=== PATIENT | female | born 1970 | race Caucasian/White ===

== ENCOUNTER 2016-08-16 00:43 | Inpatient (IN) | payer SELFPAY ==
[~2016-08-16] VITALS: Ht 157.5 cm; Wt 7.8 kg
--- NOTE | ~2016-08-16 | CO ---
ADMIT: 08/16/2016 RM/LOC: 631 [facility] MR#: [id number] [address] [address] CHIQUIS CRENSHAW [address] [place] [address] Consultation Report SEX: F AGE: 46 : 1970 DATE OF CONSULTATION: 08/16/2016 ATTENDING PHYSICIAN: Vero Andino CONSULTING PHYSICIAN: Joshua Madrid MD ADDENDUM: Chiquis is seen in consultation for gallstone pancreatitis. I have interviewed her, examined her personally, reviewed the laboratory and radiographic studies, reviewed Ralf Marin's note, and I am in agreement with his documentation, assessment, and plan. I have discussed laparoscopic cholecystectomy and its associated risks including bleeding, infection, damage to intraabdominal organs, including the biliary tree and conversion to an open procedure with Chiquis. She understands these and does wish to proceed. Would prefer her biochemical evidence of pancreatitis and her epigastric tenderness on exam to be improved, and the labs nearly normalized prior to considering surgical intervention. We will reassess with laboratory studies tomorrow and determine the timing of surgery based on that and her physical exam. Joshua Madrid MD/ krysta JOB #: [id number] CC: Vero Andino, Attending Physician Vero Andino, Family Physician
[~2016-08-16 00:43] MED LIST: COLACE-DPS100 MG PO; FEROSUL325 MG PO; LAN-O-SOOTHE7 GM TP; LATUDA40 MG PO; MOTRIN-DPS800 MG PO; MYLICON DPS80 MG PO; NIPPLECREAM PO; PERCOCET 5 DPS1 TAB PO; PRENATAL VIT1 TAB PO
--- NOTE | 2016-08-16 19:14 | ER ---
ADMIT: 08/16/2016 RM/LOC: 631 [facility] MR#: [id number] [id number] [place], [place] [address] [place] [address] [place] [address] Emergency Room Report SEX: F AGE: 46 : 1970 DATE: 08/16/2016 HISTORY OF PRESENT ILLNESS: The patient is a 46-year-old female with past medical history of depression, came to the ER with chief complaint of epigastric abdominal pain and nausea and vomiting since 2:00 p.m. for the last 12 hours. The patient states the pain is sharp and continues and started gradually and at the moment is moderate to severe in severity. The patient also had non-bilious, non-bloody vomiting. The patient states her last bowel movement was yesterday and was normal. PHYSICAL EXAMINATION: VITAL SIGNS: The patient has stable vitals, afebrile, is in moderate distress. HEAD and NECK: Noncontributory. CHEST: Clear to auscultation bilaterally. HEART: Normal heart sounds. ABDOMEN: Has mild to moderate tenderness in epigastric area, Overton sign is negative. There is no rebound. There is no guarding or rigidity. The rest of the physical exam is noncontributory. The patient received IV fluids, pain was controlled with morphine, the patient received Zofran for nausea and vomiting. LABORATORY DATA AND IMAGING: Lab work was indicative of WBC of 7.7 with hemoglobin of 12.9, and platelet of 286,000. Total bilirubin was 3.6, with elevated alkaline phosphatase of 381 and elevated AST and ALT to 683 and 642 respectively. Lipase was also elevated to 26,400. Urine was negative and UA was also negative too. Abdominal ultrasound was suggestive of cholelithiasis without cholecystitis, common bile duct is 5 mm. Family Medicine was consulted, and the patient was admitted for further followups and treatments of acute pancreatitis, gallstone pancreatitis. Sher Ding MD/ krysta JOB #: [id number] CC: Vero Andino MD, Attending Physician Vero Andino MD, Family Physician
[2016-08-18] MEDS ORDERED: LATUDA60 MG PO (19:47)
[2016-08-18] MEDS ORDERED: NORCO 5-325 TA1 EACH PO (19:47)
--- NOTE | 2016-08-21 07:24 | CO ---
ADMIT: 08/16/2016 RM/LOC: 631 [facility] MR#: [id number] [address] [address] CHIQUIS CRENSHAW [address] [place] [address] Consultation SEX: F AGE: 46 : 1970 DATE OF CONSULTATION: 08/16/2016 ATTENDING PHYSICIAN: Vero Andino CONSULTING PHYSICIAN: Joshua Madrid MD REASON FOR CONSULTATION: Abdominal pain, nausea, and vomiting. HISTORY OF PRESENT ILLNESS: Chiquis is a very pleasant, , but Singaporean- speaking 46-year-old female, who endorses a two day duration of abdominal pain and nausea and vomiting. Prior to onset of her symptoms, her abdominal pain was diffuse throughout her abdomen and she has had three times emesis. She has noticed emesis to be blood tinged, however, denies any bile or dark black emesis. Three days prior to these symptoms, she noticed diarrhea. She denies any dark or bloody stools. Because of her symptoms, she has been admitted to the hospital and had a full workup including abdominal ultrasound that did show cholelithiasis without cholecystitis. LFTs and pancreatic enzymes were elevated upon admission. She is being currently worked up for gallstone pancreatitis. PAST MEDICAL HISTORY: Bipolar disorder. PAST SURGICAL HISTORY: x4. ALLERGIES: NO KNOWN DRUG ALLERGIES. MEDICATIONS: Latuda. FAMILY HISTORY: Noncontributory. SOCIAL HISTORY: The patient is a social drinker, but denies tobacco use. REVIEW OF SYSTEMS: CONSTITUTIONAL: The patient denies any fever, chills, or night sweats. The rest of a comprehensive 10-point review of systems was performed and all other systems are negative. PHYSICAL EXAMINATION: GENERAL: The patient is in no acute distress. She is alert and oriented. HEENT: Head is normocephalic and atraumatic. EOMS are intact. Conjunctivae free of icterus, erythema, or pallor. Pinnae, free of deformities. Nose, midline. No tracheal deviation. NECK: Supple. SKIN: Negative for jaundice, clubbing, edema, pallor, or cyanosis. LUNGS: Normal respiratory effort. HEART: Distal pulses intact. Regular rate and rhythm. ABDOMEN: Soft, nondistended, and nontender. NEURO: Grossly intact. ADMIT: 08/16/2016 RM/LOC: 631 [facility] MR#: [id number] [address] [address] CHIQUIS CRENSHAW [address] [place] [address] Consultation SEX: F AGE: 46 : 1970 LABORATORY DATA: Lipase 8000. White blood cell count normal at 4.8. DIAGNOSTIC IMAGING: Please see HPI. ASSESSMENT: Gallstone pancreatitis. PLAN: The plan is to have the patient continued on ice chips, and we are going to recheck labs tomorrow morning. Hopefully, we will see a continued trend down of her enzymes and consider surgery hopefully later this week. I discussed this plan with the patient to which she is in agreement with this plan, had all her questions answered, and would like to proceed. Thanks for the consultation of this patient. BRENDA Gale / Joshua Madrid MD / krysta JOB #: [id number] CC: Vero Andino, Attending Physician Vero Andino, Family Physician
--- NOTE | 2016-08-23 08:18 | HP ---
ADMIT: 08/16/2016 RM/LOC: 631 [facility] MR#: [id number] [address] [address] [place] [address] [place] [address] History and Physical SEX: F AGE: 46 : 1970 DATE OF SERVICE: CHIEF COMPLAINT: Abdominal pain. HISTORY OF PRESENT ILLNESS: This is a 46-year-old female with past medical history of bipolar disorder, who was admitted with acute pancreatitis. The patient reports sudden onset of abdominal pain around 2:00 p.m. yesterday afternoon. She also had some associated nausea and vomited x3. She noticed some slight blood-tinged mucus in her vomit, but no bile. She denies any fevers. She reports that she drinks approximately 2 alcoholic beverages per month with her last drink being about 2 weeks ago. In the ED, her vital signs were stable, but her labs were significant for a lipase of 26,456, AST of 683, ALT of 642, alk phos of 381, and a bilirubin of 3.6. Her abdominal ultrasound showed some gallstones, but no signs of cholecystitis and her abdominal x-ray showed a normal bowel gas pattern. She was given 1 L of IV normal saline as well as Zofran and 6 mg of IV morphine for pain control. Her last dose of morphine was at 4:00 a.m. this morning, and she is currently pain-free. PAST MEDICAL HISTORY: Bipolar disorder. PAST SURGICAL HISTORY: x4. MEDICATIONS: 1. Sucralfate 1 g t.i.d. p.r.n. 2. Latuda, unknown dose at this time. ALLERGIES: NONE. SOCIAL HISTORY: She denies any tobacco or illegal drug use. She does drink approximately 2 alcoholic drinks per month with her last drink being 2 weeks ago. She lives at home. FAMILY HISTORY: Noncontributory. REVIEW OF SYSTEMS: A 10-point review of systems was reviewed and negative other than that stated above in the HPI. PHYSICAL EXAMINATION: VITAL SIGNS: Blood pressure 122/65, pulse 70, respirations 24, temp 98.7, saturating 93% on room air. GENERAL: She is resting comfortably, in no acute distress. HEENT: Shows moist mucous membranes. Nose is clear, atraumatic. HEART: Regular rate and rhythm. No murmurs. LUNGS: Clear to auscultation. ABDOMEN: Soft, mid-epigastric and left upper quadrant tenderness to palpation. Positive bowel sounds. EXTREMITIES: No edema. LABORATORY DATA AND IMAGING: Sodium 139, potassium 3.7, creatinine 1.2, glucose 151. White count 7.7, hemoglobin 12.9, platelets 286. Alk phos 381, ADMIT: 08/16/2016 RM/LOC: 1 [facility] MR#: [id number] [address] [place] [id number] GIULIANA CRENSHAW [address] [place] [address] History and Physical SEX: F AGE: 46 : 1970 AST 683, ALT 642, lipase 26,456, bilirubin 3.6. Ultrasound report shows gallstones with no signs of cholecystitis. ASSESSMENT: 1. Acute pancreatitis likely secondary to gallstones. 2. Acute kidney injury. 3. Elevated LFTs likely secondary to pancreatitis. 4. Bipolar disorder. PLAN: Plan will be to continue aggressive IV fluid hydration, Zofran, and morphine. We will go ahead and advance her diet as tolerated this afternoon. If her repeat labs this morning do not improve from her initial lab results, we may consider getting an MRCP, also get a correct Latuda dose from [facility] and continue on that medication here in the hospital. Abigail Zaldivar DO Resident / Vero Andino MD / krysta JOB #: [id number] CC: Vero Andino, Attending Physician Vero Andino, Family Physician
--- NOTE | 2016-08-31 13:52 | DS ---
ADMIT: 08/16/2016 RM/LOC: W.10 [facility] MR#: [id number] [address] [address] GIULIANA CRENSHAW [address] [place] [address] Discharge Summary SEX: F AGE: 46 : 1970 ADMISSION DATE: 08/16/2016 DISCHARGE DATE: 08/17/2016 FINAL DIAGNOSES: 1. Gallstone pancreatitis. 2. Cholecystitis. HOSPITAL COURSE: The patient was admitted on 08/16/2016 with abdominal pain and emesis. Labs were significant for elevated liver and pancreatic enzymes. An abdominal ultrasound showed gallstones but no signs of gallbladder wall thickening. The patient was giving given morphine and IV fluids and pain and emesis subsided. Surgery was consulted for further management and it was decided to do a CT of the abdomen and pelvis. The CT showed gallstones and so the plan was then to do a lap cholecystectomy. The patient was taken to the operating room for the lap ilene and tolerated the procedure well. She was then discharged to home later that day. Abigail Zaldivar DO Resident / Vero Andino MD / vdg JOB #: [id number] CC: Vero Andino MD, Attending Physician Vero Andino MD, Family Physician
--- NOTE | 2016-09-12 13:25 | OR ---
ADMIT: 08/16/2016 RM/LOC: W.10 [facility] MR#: [id number] [facility]#: [id number] [address] [address] [place] Janice [address] [place] [address] Operative/Delivery Room Report SEX: F AGE: 46 : 1970 SURGERY DATE: 08/17/2016 SURGEON: Naseem Smalls MD PREOPERATIVE DIAGNOSES: 1. Gallstone pancreatitis. 2. Cholecystitis. POSTOPERATIVE DIAGNOSES: 1. Gallstone pancreatitis. 2. Cholecystitis. FINAL PATHOLOGY: Pending. PROCEDURE: Laparoscopic cholecystectomy with intraoperative cholangiogram. PARKING RAMP ATTENDANT: BRENDA Gale, who was necessary for adequate exposure, retraction, and completion of this case. ANESTHESIA: General endotracheal tube. ESTIMATED BLOOD LOSS: 25 mL or less. INDICATION FOR PROCEDURE: Please see H and P. DESCRIPTION OF PROCEDURE: After the risks, benefits, possible complications, and the alternatives had been explained and informed consent had been obtained, the patient was taken back to the operating room, underwent general endotracheal tube anesthesia, and the surgical field was prepped and draped in a sterile manner. An infraumbilical incision was made. The Veress needle was inserted. The abdomen was insufflated with CO2. Once there was adequate insufflation, a 5 mm port was placed. The camera was placed through this port site. Under direct visualization, then placed a 10 mm epigastric, two 5 mm right upper quadrant ports. The gallbladder was raised superiorly and anteriorly, slowly dissected out the cystic duct coming directly off the gallbladder. A clip was placed on the gallbladder side. Introduced a cholangiogram catheter percutaneously through the right upper quadrant, opened the duct, placed the catheter into the cystic duct and clipped it. Obtained an intraoperative cholangiogram that showed good anatomy. No real dilation of the ducts, good filling into the duodenum, and no filling defects. Once that was done, I removed the catheter and then placed three clips on the remaining cystic duct and it was divided. Behind this, dissected out the artery. It was kind of branching, I was unsure of one posterior branch, this would possibly go back into the liver, so I went up a little higher, clipped that ADMIT: 08/16/2016 RM/LOC: W.10 [facility] MR#: [id number] [address] [address] [place] Janice [address] [place] [address] Operative/Delivery Room Report SEX: F AGE: 46 : 1970 proximally, distally, it was divided. Then as I worked the gallbladder off the liver bed, this branch was going to the gallbladder, so it was clipped twice as well. The gallbladder was then slowly removed from the liver bed using electrocautery and Endo Mil, placed in EndoCatch bag and removed through the epigastric port site. I did have to enlarge a little bit just to get all the stones and gallbladder out. Irrigated the wounds with much irrigation as possible. Liver bed appeared dry. The clips in good position. I injected 0.5% Marcaine in the incision sites for pain control, closed the fascia of the epigastric port site with an 0-Polysorb suture using the suture passer, and then the skin was all closed with 4-0 Monocryl after the ports were removed. Tolerated it well, was extubated, taken to recovery room in sure and satisfactory condition. Naseem Smalls MD/ krysta JOB #: [id number] CC: Vero Andino MD, Attending Physician Vero Andino MD, Family Physician
== END 2016-08-17 13:39 | disposition home or self-care (01) | DRG 417 ==
LOC: ER 00:43 → 6PED 04:21 → WOR 08-17 13:39
PROVIDERS: ADMIT Family Medicine
PROC: 0FT44ZZ Resection of Gallbladder, Percutaneous Endoscopic Approach (ICD-10-PCS; principal; 2016-08-17)
PROC: BF101ZZ Fluoroscopy of Bile Ducts using Low Osmolar Contrast (ICD-10-PCS; principal; 2016-08-17)
DX: K80.10 Calculus of gallbladder with chronic cholecystitis without obstruction (principal); K85.10 Biliary acute pancreatitis without necrosis or infection; N17.9 Acute kidney failure, unspecified; F31.9 Bipolar disorder, unspecified; R79.89 Other specified abnormal findings of blood chemistry